=== PATIENT | female | born 1970 | race American Indian/Alaskan Native ===

== ENCOUNTER 2017-03-25 06:04 | Day surgery (SDC) | payer MEDICAID ==
[2017-03-25] MEDS ORDERED: XYLOCAINE MPF 2% ONE ×2 (07:00→10:14)
[2017-03-25] MEDS ORDERED: NACL 0.9% 1000 ML 1,000 ML ONE (07:10)
--- NOTE | 2017-03-25 07:24 | Anesthesia Day of Surgery ---
Anesthesia Day of Surgery - Day of Surgery Patient Examined: Yes Patient H&P Reviewed: Yes Patient is NPO: Yes
--- NOTE | 2017-03-25 07:24 | Anesthesia Consultation ---
Anesthesia Consult and Med Hx Date of service: 03/25/17 - Airway Anesthetic Teeth Evaluation: Good ROM Head & Neck: Adequate Mental/Hyoid Distance: Adequate Mallampati Class: Class II Intubation Access Assessment: Probably Good - Pulmonary Exam CTA: Yes - Cardiac Exam Cardiac Exam: RRR - Pre-Operative Health Status ASA Pre-Surgery Classification: ASA3 Proposed Anesthetic Plan: MAC - Pulmonary Hx Smoking: No Hx Asthma: Yes ( A CHILD) Hx Sleep Apnea: Yes (DIAGNOSED RECENTLY) - Cardiovascular System Hx Hypertension: No Hx Heart Attack/AMI: No - Central Nervous System CVA: No - Gastrointestinal Hx Gastroesophageal Reflux Disease: No - Other Systems Hx Obesity: Yes - Additional Comments Anesthesia Medical History Comments: NAC
[2017-03-25] MEDS ORDERED: WATER FOR IRRIG STERILE IR ONE (07:52)
[2017-03-25] MEDS ORDERED: DIPRIVAN 10 MG/ML IV ONE (07:54)
[2017-03-25] MEDS ORDERED: NACL 0.9% 1000 ML 1,000 ML IV SCH (08:00)
[2017-03-25 08:35] VITALS: BP 125/85
--- NOTE | 2017-03-25 09:25 | Discharge Summary ---
Providers - Providers Date of discharge: 03/25/17 Attending physician: JOHNY BOLANOS Hospitalization Reason for admission: outpateint EGD Condition: Stable Procedures: EGD Disposition: - TO HOME OR SELFCARE Core Measure Documentation - Palliative Care Palliative Care/ Comfort Measures: Not Applicable - Core Measures Any of the following diagnoses?: none Exam - Physical Exam Narrative exam: unchanged since preop - Constitutional Vitals: Temp Pulse Resp BP Pulse Ox 98.3 F 83 15 125/85 99 03/25/17 08:05 03/25/17 08:35 03/25/17 08:35 03/25/17 08:35 03/25/17 08:35 Plan Activity: advance as tolerated Diet: low carbohydrate Follow up with: MARTY HART [Other] - 7 Days
--- NOTE | 2017-03-25 10:00 | Post Anesthesia Evaluation ---
- Post Anesthesia Evaluation Patient Participated: Yes Airway Patent: Yes Stable Respiratory Function: Yes Nausea/Vomiting: No Temp > 96.8F: Yes Pain Manageable: Yes Adequeate Hydration: Yes Anesthesia Complications: No
== END 2017-03-25 06:05 | disposition home or self-care (01) ==
LOC: GIO 06:04
PROVIDERS: ATTEND Specialist
DX: K44.9 Diaphragmatic hernia without obstruction or gangrene (principal); J45.909 Unspecified asthma, uncomplicated; E66.01 Morbid (severe) obesity due to excess calories; Z68.43 Body mass index [BMI] 50.0-59.9, adult; Z90.49 Acquired absence of other specified parts of digestive tract; Z98.890 Other specified postprocedural states; Z82.49 Family history of ischemic heart disease and other diseases of the circulatory system; Z88.0 Allergy status to penicillin; Z91.013 Allergy to seafood
CPT/HCPCS: 43235; 81025; J2704; J7030